=== PATIENT | male | born 1990 | race Caucasian/White ===

== ENCOUNTER 2021-02-03 11:41 | Inpatient (IN) | payer OTHER ==
[2021-02-03 12:38] VITALS: BMI 33.7
[2021-02-03] MEDS ORDERED: BISMUTH SUBSALICYLATE 524 MG/30 ML UD PO PRN (16:40)
[2021-02-03] MEDS ORDERED: METHADONE HCL 10 MG TABLET (FOR DETOX USE ONLY) PO ONE (16:40)
[2021-02-03] MEDS ORDERED: ACETAMINOPHEN 325 MG TABLET (FP) PO PRN ×2 (16:40)
[2021-02-03] MEDS ORDERED: MAGNESIUM HYDROX 2400MG/30ML ORAL SUSPENSION 30 ML CUP PO PRN (16:40)
[2021-02-03] MEDS ORDERED: ONDANSETRON *ODT* 4 MG TABLET SL PRN (16:40)
[2021-02-03] MEDS ORDERED: MENTHOL/PHENOL 1 EACH UD MM PRN (16:40)
[2021-02-03] MEDS ORDERED: IBUPROFEN 400 MG TABLET (FP) PO PRN (16:40)
[2021-02-03] MEDS ORDERED: NALOXONE (NARCAN) HCL 4 MG/0.1 ML SPRAY NS PRN (16:40)
[2021-02-03] MEDS ORDERED: MAGNESIUM CITRATE 300 ML BOTTLE PO PRN (16:40)
[2021-02-03] MEDS: METHOCARBAMOL 500 MG TABLET PO PRN (18:30)
[2021-02-03] MEDS: PRENATAL VITAMINS W/ FOLIC ACID TABLET (FP) PO SCH (18:32)
[2021-02-03] MEDS: hydrOXYzine PAMOATE 25 MG CAPSULE (FP) PO SCH ×2 (18:34→22:26)
[2021-02-03] MEDS: NICOTINE 14 MG/24 HOURS TOPICAL PATCH TD SCH (18:34)
[2021-02-03] MEDS: MAG HYDROX/AL HYDROX/SIMETH 30 ML UNIT-DOSE CUP PO PRN (19:16)
[2021-02-03] MEDS ORDERED: MELATONIN 5 MG TABLETS PO SCH (22:00)
[2021-02-03] MEDS: THIAMINE HCL 100 MG TABLET (FP) PO SCH (22:26)
[2021-02-04] MEDS: hydrOXYzine PAMOATE 25 MG CAPSULE (FP) PO SCH ×5 (06:11→22:29)
[2021-02-04] MEDS ORDERED: METHADONE HCL 5 MG TABLET (FOR DETOX USE ONLY) ONE (08:59)
[2021-02-04] MEDS ORDERED: METHADONE HCL 10 MG TABLET (FOR DETOX USE ONLY) ONE (09:00)
[2021-02-04] MEDS ORDERED: NALOXONE (NARCAN) HCL 4 MG/0.1 ML SPRAY NS ONE (09:13)
[2021-02-04] MEDS ORDERED: diazePAM 5 MG TABLET PO PRN (09:38)
[2021-02-04] MEDS ORDERED: IBUPROFEN 600 MG TABLET (FP) PO PRN (09:39)
[2021-02-04] MEDS ORDERED: METHADONE (DETOX) 20 MG, METHADONE (DETOX) 5 MG PO ONE (10:00)
[2021-02-04] MEDS: PRENATAL VITAMINS W/ FOLIC ACID TABLET (FP) PO SCH (10:12)
[2021-02-04] MEDS: PANTOPRAZOLE 40 MG TABLET PO SCH (10:14)
[2021-02-04] MEDS: NICOTINE 14 MG/24 HOURS TOPICAL PATCH TD SCH (10:17)
[2021-02-04 11:25] LABS: HEMATOCRIT 37.6 % (35.4-49); HEMOGLOBIN 12.7 GM/dL (11.7-16.9); MCH 29.7 pg (25.7-33.7); MCHC 33.8 g/dl (32.0-35.9); MEAN CELL VOLUME 87.8 fl (80-96); MEAN PLT VOLUME 8.3 fl (7.5-11.1); PLATELET COUNT 302 K/MM3 (134-434); RBC 4.28 M/mm3 (4.00-5.60); RDW 13.5 % (11.9-15.9); WHITE BLOOD COUNT 9.5 K/mm3 (4.0-10.0)
[2021-02-04 11:41] LABS: ALBUMIN 3.2 g/dl (3.4-5.0); BLOOD UREA NITROGEN 8.4 mg/dL (7-18); CALCIUM 9.3 mg/dL (8.5-10.1)
[2021-02-04 11:44] LABS: CREATININE 0.7 mg/dL (0.55-1.3)
[2021-02-04 11:45] LABS: BILIRUBIN,TOTAL 0.6 mg/dL (0.2-1); TOT PROT 6.6 g/dl (6.4-8.2)
[2021-02-04] MEDS: METHOCARBAMOL 500 MG TABLET PO PRN ×2 (11:48→17:54)
[2021-02-04] MEDS: cloNIDine HCL 0.1 MG TABLET PO PRN (22:29)
[2021-02-04] MEDS: THIAMINE HCL 100 MG TABLET (FP) PO SCH (22:29)
[2021-02-04] MEDS: MELATONIN 5 MG TABLETS PO PRN (22:30)
[2021-02-05] MEDS: hydrOXYzine PAMOATE 25 MG CAPSULE (FP) PO SCH ×5 (06:30→22:26)
[2021-02-05] MEDS ORDERED: NICOTINE POLACRILEX 2 MG GUM BC PRN (09:40)
[2021-02-05] MEDS ORDERED: METHADONE HCL 10 MG TABLET (FOR DETOX USE ONLY) PO ONE (10:00)
[2021-02-05] MEDS: NICOTINE 21 MG/24 HOURS TOPICAL PATCH TD SCH (10:30)
[2021-02-05] MEDS: PANTOPRAZOLE 40 MG TABLET PO SCH (10:31)
[2021-02-05] MEDS: NICOTINE POLACRILEX 2 MG GUM BUC PRN ×3 (10:31→18:09)
[2021-02-05] MEDS: PRENATAL VITAMINS W/ FOLIC ACID TABLET (FP) PO SCH (10:31)
[2021-02-05] MEDS: MAG HYDROX/AL HYDROX/SIMETH 30 ML UNIT-DOSE CUP PO PRN (12:33)
[2021-02-05] MEDS: MELATONIN 5 MG TABLETS PO PRN (22:26)
[2021-02-05] MEDS: THIAMINE HCL 100 MG TABLET (FP) PO SCH (22:26)
[2021-02-05] MEDS: cloNIDine HCL 0.1 MG TABLET PO PRN (22:26)
[2021-02-05] MEDS: METHOCARBAMOL 500 MG TABLET PO PRN (22:26)
[2021-02-06] MEDS: hydrOXYzine PAMOATE 25 MG CAPSULE (FP) PO SCH ×5 (06:14→22:28)
[2021-02-06] MEDS: METHOCARBAMOL 500 MG TABLET PO PRN ×3 (06:14→18:05)
[2021-02-06] MEDS ORDERED: METHADONE HCL 5 MG TABLET (FOR DETOX USE ONLY) ONE (08:39)
[2021-02-06] MEDS ORDERED: METHADONE HCL 10 MG TABLET (FOR DETOX USE ONLY) ONE (08:39)
[2021-02-06] MEDS ORDERED: METHADONE (DETOX) 10 MG, METHADONE (DETOX) 5 MG PO ONE (10:00)
[2021-02-06] MEDS: NICOTINE 21 MG/24 HOURS TOPICAL PATCH TD SCH (11:10)
[2021-02-06] MEDS: PANTOPRAZOLE 40 MG TABLET PO SCH (11:10)
[2021-02-06] MEDS: PRENATAL VITAMINS W/ FOLIC ACID TABLET (FP) PO SCH (11:10)
[2021-02-06 14:07] LABS: SARS-CoV-2 NAA Not Detected (Not Detected)
[2021-02-06] MEDS: MELATONIN 5 MG TABLETS PO PRN (22:27)
[2021-02-06] MEDS: THIAMINE HCL 100 MG TABLET (FP) PO SCH (22:28)
[2021-02-07] MEDS: METHOCARBAMOL 500 MG TABLET PO PRN ×4 (01:09→22:01)
[2021-02-07] MEDS: hydrOXYzine PAMOATE 25 MG CAPSULE (FP) PO SCH ×5 (06:15→22:00)
[2021-02-07] MEDS ORDERED: traZODone HCL 50 MG TABLET (FP) PO PRN (09:26)
[2021-02-07] MEDS: PANTOPRAZOLE 40 MG TABLET PO SCH (09:26)
[2021-02-07] MEDS: PRENATAL VITAMINS W/ FOLIC ACID TABLET (FP) PO SCH (09:28)
[2021-02-07] MEDS: NICOTINE 21 MG/24 HOURS TOPICAL PATCH TD SCH (09:29)
[2021-02-07] MEDS ORDERED: METHADONE HCL 10 MG TABLET (FOR DETOX USE ONLY) PO ONE (10:00)
[2021-02-07] MEDS: NICOTINE POLACRILEX 2 MG GUM BUC PRN (15:49)
[2021-02-07] MEDS ORDERED: cloNIDine HCL 0.1 MG TABLET PO ONE (19:54)
[2021-02-07] MEDS: THIAMINE HCL 100 MG TABLET (FP) PO SCH (22:00)
[2021-02-07] MEDS: MELATONIN 5 MG TABLETS PO PRN (22:00)
[2021-02-08] MEDS: METHOCARBAMOL 500 MG TABLET PO PRN (04:40)
[2021-02-08] MEDS ORDERED: METHADONE HCL 5 MG TABLET (FOR DETOX USE ONLY) PO ONE (06:00)
[2021-02-08] MEDS: hydrOXYzine PAMOATE 25 MG CAPSULE (FP) PO SCH (06:36)
[2021-02-08 09:36] VITALS: BP 118/67; PULSE 75; TEMP 96.2
== END 2021-02-08 12:58 | disposition home or self-care (01) | DRG 773 ==
LOC: YASAS 11:41 → Y6N 16:12
PROVIDERS: ADMIT Allergy & Immunology; ATTEND Allergy & Immunology
PROC: HZ2ZZZZ Detoxification Services for Substance Abuse Treatment (ICD-10-PCS; principal; 2021-02-03)
DX: F11.23 Opioid dependence with withdrawal (principal); F10.230 Alcohol dependence with withdrawal, uncomplicated; F12.10 Cannabis abuse, uncomplicated; F17.210 Nicotine dependence, cigarettes, uncomplicated; F19.282 Other psychoactive substance dependence with psychoactive substance-induced sleep disorder; F41.8 Other specified anxiety disorders; F43.29 Adjustment disorder with other symptoms; F32.9 Major depressive disorder, single episode, unspecified; K21.9 Gastro-esophageal reflux disease without esophagitis; M54.5 Low back pain; G89.29 Other chronic pain; Z63.4 Disappearance and death of family member; Z87.828 Personal history of other (healed) physical injury and trauma; Z98.890 Other specified postprocedural states
CPT/HCPCS: 36415; 80053; 85027; 86780; C9803; J0735; U0003; U0005